=== PATIENT | female | born 1970 | race American Indian/Alaskan Native ===

== ENCOUNTER 2022-01-07 08:44 | Inpatient (IN) | payer OTHER ==
--- NOTE | 2022-01-07 09:23 | Emergency Department Report ---
HPI - General Chief Complaint: Neuro Symptoms/Deficit Time Seen by Provider: 01/07/22 09:11 - HPI HPI: Charge nurse triage/room 1 The patient is a 51-year-old female presenting with a chief complaint of dysarthria. Patient states last night at approximately 2200 she became confused and had difficulties getting her words out ED Past Medical Hx - Past Medical History Previous Medical History?: No - Surgical History Additional Surgical History: , tubal ligation - Family History Family history: no significant - Social History Smoking Status: Never Smoker ED Review of Systems ROS: Stated complaint: CANT SPEAK/OR THINK SUDDENLY Other details as noted in HPI Neurological: confusion Physical Exam - Physical Exam Vital Signs: Vital Signs 01/07/22 08:54 Temperature 98.0 F Pulse Rate 78 Respiratory 14 Rate Blood Pressure 147/90 O2 Sat by Pulse 100 Oximetry Physical Exam: GENERAL: The patient is well-developed well-nourished female sitting in wheelchair not appearing to be in acute distress. [] HEENT: Normocephalic. Atraumatic. Extraocular motions are intact. Patient has moist mucous membranes. NECK: Supple. Trachea midline CHEST/LUNGS: Clear to auscultation. There is no respiratory distress noted. HEART/CARDIOVASCULAR: Regular. There is no tachycardia. There is no gallop rub or murmur. ABDOMEN: Abdomen is soft, nontender. Patient has normal bowel sounds. There is no abdominal distention. SKIN: There is no rash. There is no edema. There is no diaphoresis. NEURO: The patient is awake, alert, and oriented. The patient is cooperative. The patient has normal speech. Cranial nerves II through XII grossly intact. GCS 15. Patient able to hold either upper extremity at 45 degree angle for 10- second count without drift. Patient is exhibiting difficultywith her speech. NIHSS=1 MUSCULOSKELETAL: There is no evidence of acute injury. ED Course Vital Signs 01/07/22 08:54 Temperature 98.0 F Pulse Rate 78 Respiratory 14 Rate Blood Pressure 147/90 O2 Sat by Pulse 100 Oximetry ED Medical Decision Making - Lab Data Laboratory Tests 01/07/22 01/07/22 01/07/22 09:28 09:28 09:28 WBC 8.4 RBC 4.56 Hgb 13.8 Hct 41.6 MCV 91 MCH 30 MCHC 33 RDW 14.4 Plt Count 219 Lymph % (Auto) 25.9 [place] % (Auto) 5.1 Eos % (Auto) 0.7 Baso % (Auto) 0.5 Lymph # (Auto) 2.2 [place] # (Auto) 0.4 Eos # (Auto) 0.1 Baso # (Auto) 0.0 Seg Neutrophils % 67.8 Seg Neutrophils # 5.7 PT 13.6 INR 0.94 APTT 29.0 Thrombin Time 18.1 Sodium 135 L Potassium 4.5 Chloride 99.5 Carbon Dioxide 26 Anion Gap 14 BUN 13 Creatinine 1.1 Estimated GFR 52 BUN/Creatinine Ratio 12 Glucose 121 H Calcium 9.6 - EKG Data -: EKG Interpreted by Mt EKG shows normal: sinus rhythm Rate: normal (75 bpm) - EKG Data When compared to previous EKG there are: previous EKG unavailable Interpretation: other (No ischemic changes seen) - Radiology Data Radiology results: image reviewed (CT head, CTA brain, CTA neck) [facility] [address] [place] [address] Cat Scan Report Signed Patient: AD BURGOS MR#: [id number] : 1970 Acct:[id number] Age/Sex: 51 / F ADM Date: 01/07/22 Loc: ED Attending Dr: Ordering Physician: DANAE REYNOSO MD Date of Service: 01/07/22 Procedure(s): CT head/brain wo con Accession Number(s): [id number] cc: DANAE REYNOSO MD CT head/brain wo con INDICATION / CLINICAL INFORMATION: 51 years Female; Dysarthria. TECHNIQUE: Routine CT head without contrast. All CT scans at this location are performed using CT dose reduction for ALARA by means of automated exposure control. COMPARISON: None available. FINDINGS: There is a focus of relative decreased attenuation within the lateral left frontal lobe measuring approximately 2 cm transversely. The findings be concerning for developing acute/subacute infarct involving cortical and subcortical region at. There also appears be mild relative effacement of the adjacent sulci. There is an old lacunar infarct along the head of the right caudate. There is otherwise mild cerebral white matter changes which may reflect mild microvascular angiopathy. There are foci of calcification within the basal ganglia. There is no clear CT ends of acute intracranial hemorrhage or significant mass effect. ORBITS: No significant abnormality of visualized orbits. SINUSES / MASTOIDS: No significant abnormality in the visualized paranasal sinuses or mastoid air cells. CRANIOCERVICAL JUNCTION: No significant abnormality. ADDITIONAL FINDINGS: None. IMPRESSION: 1. There is decreased attenuation along the lateral left frontal cortical and subcortical region as detailed above concerning for acute/subacute infarct. 2. There is otherwise microvascular angiopathy as described without evidence of acute intracranial hemorrhage. Signer Name: Jf Teixeira MD Signed: 01/07/2022 9:45 AM Workstation Name: [id number] Transcribed By: MR Dictated By: Jf Teixeira MD Electronically Authenticated By: Jf Teixeira MD Signed Date/Time: 01/07/22944 DD/ 8 TD/TT: [facility] [address] [place] [address] Cat Scan Report Signed Patient: AD BURGOS MR#: [id number] : 1970 Acct:[id number] Age/Sex: 51 / F ADM Date: 01/07/22 Loc: ED Attending Dr: Ordering Physician: DANAE REYNOSO MD Date of Service: 01/07/22 Procedure(s): CT angio neck Accession Number(s): [id number] cc: DANAE REYNOSO MD CT angio neck INDICATION / CLINICAL INFORMATION: 51 years Female; Dysarthria. TECHNIQUE: Thin cut axial images obtained through the head during IV bolus contrast administration. Sagittal, coronal, and 3 plane MIP reconstructions performed by the technologist. NASCET type crit eria used evaluate stenoses. All CT scans at this location are performed using CT dose reduction for ALARA by means of automated exposure control. COMPARISON: None available. FINDINGS: CAROTID ARTERIES: There is no significant stenosis involving cervical carotid arteries by NASCET criteria. The carotid bifurcations are widely patent. VERTEBRAL ARTERIES: The vertebral arteries also demonstrate appropriate caliber without significant focal stenosis. The vessel ayers demonstrate fairly smooth contours. ARCH: There is no significant stenosis involving origins of the arch of vessels. ADDITIONAL FINDINGS: Remainder of the surrounding soft tissues are grossly normal. IMPRESSION: There is no significant stenosis involving cervical carotid or vertebral arteries by NASCET to criteria. Signer Name: Jf Teixeira MD Signed: 01/07/2022 9:54 AM Workstation Name: [id number] Transcribed By: MR Dictated By: Jf Teixeira MD Electronically Authenticated By: Jf Teixeira MD Signed Date/Time: 01/07/22953 DD/ 0 TD/TT: [facility] [address] [place] [address] Cat Scan Report Signed Patient: AD BURGOS MR#: [id number] : 1970 Acct:[id number] Age/Sex: 51 / F ADM Date: 01/07/22 Loc: ED Attending Dr: Ordering Physician: DANAE REYNOSO MD Date of Service: 01/07/22 Procedure(s): CT angio head Accession Number(s): [id number] cc: DANAE REYNOSO MD CT angio head INDICATION / CLINICAL INFORMATION: 51 years Female; Dysarthria. TECHNIQUE: Thin cut axial images obtained through the head during IV bolus contrast administration. Sagittal, coronal, and 3 plane MIP reconstructions performed by the technologist. NASCET type crit eria used evaluate stenoses. Automated exposure control utilized for radiation reduction purposes. COMPARISON: None available. FINDINGS: INTERNAL CAROTID ARTERIES: There is no significant focal stenosis involving the intracranial ICAs by NASCET criteria. VERTEBROBASILAR SYSTEM: The vertebrobasilar system also demonstrate appropriate caliber without significant focal stenosis. CEREBRAL ARTERIES: The proximal cerebral arteries and adjacent segments appear to demonstrate appropriate caliber. On the earlier noncontrast study at, there is relative decreased attenuation involving the more superior left lateral frontal cortical and subcortical region at. However, there is no clear evidence of more proximal large vessel occlusion amenable to endovascular treatment. ANEURYSM: None identified. ADDITIONAL FINDINGS: The dural venous sinuses opacify with contrast. IMPRESSION: On the earlier noncontrast CT, the findings are indicative of evolving infarct involving superior, lateral left frontal cortical and subcortical region as previously described. There is no clear CTA evidence of more proximal large vessel occlusion amenable to endovascular treatment. Signer Name: Jf Teixeira MD Signed: 01/07/2022 10:03 AM Workstation Name: [id number] Transcribed By: MR Dictated By: Jf Teixeira MD Electronically Authenticated By: Jf Teixeira MD Signed Date/Time: 01/07/22 100 DD/ 3 TD/TT: Critical care attestation.: If time is entered above; I have spent that time in minutes in the direct care of this critically ill patient, excluding procedure time. ED Disposition Clinical Impression: CVA (cerebral vascular accident) Disposition: ADMITTED INPATIENT Is pt being admited?: Yes Does the pt Need Aspirin: Yes Condition: Fair Time of Disposition: 10:58 (Care transferred to hospitalist (Dr. Osorio))
--- NOTE | 2022-01-07 09:32 | Consultation ---
History of Present Illness - Reason for Consult Consult date: 01/07/22 - History of Present Illness [facility] Consult Note # Demographics Consult Type: Acute Stroke Level 1 (0-4.5 hrs) Patient Location: Emergency Room First Name: Debby Last Name: Khadar Date of : 1970 Age: 51 Gender: Female Facility: [facility] Time of Initial Page (): 01/07/2022, 09:17 Time of Return Call (): 01/07/2022, 09:18 # HPI History: 51yo woman who presents with confusion that started yesterday. No focal weakness in the arms or legs. Associated Symptoms: confusion no dizziness no double vision headache # Scores Time of exam and NIHSS (): 01/07/2022, 09:19 Level of Consciousness 1a: [0] = Alert; keenly responsive LOC Questions 1b: [0] = Answers both questions correctly LOC Commands 1c: [0] = Performs both tasks correctly Best Gaze 2: [0] = Normal Visual 3: [0] = No visual loss Facial Palsy 4: [0] = Normal symmetrical movements Motor Arm Left 5a: [0] = No drift Motor Arm Right 5b: [0] = No drift Motor Leg Left 6a: [0] = No drift Motor Leg Right 6b: [0] = No drift Limb Ataxia 7: [0] = Absent Sensory 8: [0] = Normal Best Language 9: [0] = No aphasia Dysarthria 10: [0] = Normal Extinction and Inattention 11: [0] = No abnormality NIHSS Total: 0 # Data Time Head CT personally read by me (): 01/07/2022, 09:[address]: no bleed preliminarily reviewed by me, please refer to radiology read for official reading # Assessment Impression: Altered Mental Status # Plan Thrombolytic/Intervention: NOT IV Thrombolysis or IA Intervention candidate Thrombolytic Exclusion: > 4.5 hours Intraarterial Exclusion: clinically not consistent with stroke Labs: Ammonia B12 comprehensive metabolic panel ESR liver function tests TSH urine drug screen ua Imaging: (urgency: STAT): CT Angiogram Head and CT Angiogram Neck AND call back with results if abnormal Imaging: (urgency: routine): MRI Brain without contrast Other: telemetry monitoring would not pursue stroke work-up if MRI is negative I have discussed my recommendations with the referring provider Medications and Allergies Allergies Allergy/AdvReac Type Severity Reaction Status Date / Time No Known Allergies Allergy Verified 01/07/22 09:01 Exam - Constitutional Vitals: Temp Pulse Resp BP Pulse Ox 98.0 F 78 14 147/90 100 01/07/22 08:54 01/07/22 08:54 01/07/22 08:54 01/07/22 08:54 01/07/22 08:54
--- NOTE | 2022-01-07 09:50 | Cat Scan Report ---
CT head/brain wo con INDICATION / CLINICAL INFORMATION: 51 years Female; Dysarthria. TECHNIQUE: Routine CT head without contrast. All CT scans at this location are performed using CT dos e reduction for ALARA by means of automated exposure control. COMPARISON: None available. FINDINGS: There is a focus of relative decreased attenuation within the lateral left frontal lobe measuring nicola roximately 2 cm transversely. The findings be concerning for developing acute/subacute infarct involv ing cortical and subcortical region at. There also appears be mild relative effacement of the adjacen t sulci. There is an old lacunar infarct along the head of the right caudate. There is otherwise mild cerebral white matter changes which may reflect mild microvascular angiopathy . There are foci of calcification within the basal ganglia. There is no clear CT ends of acute intrac ranial hemorrhage or significant mass effect. ORBITS: No significant abnormality of visualized orbits. SINUSES / MASTOIDS: No significant abnormality in the visualized paranasal sinuses or mastoid air mishel ls. CRANIOCERVICAL JUNCTION: No significant abnormality. ADDITIONAL FINDINGS: None. IMPRESSION: 1. There is decreased attenuation along the lateral left frontal cortical and subcortical region as d etailed above concerning for acute/subacute infarct. 2. There is otherwise microvascular angiopathy as described without evidence of acute intracranial he morrhage. Signer Name: Jf Teixeira MD Signed: 01/07/2022 9:45 AM Workstation Name: [id number]
--- NOTE | 2022-01-07 09:59 | Cat Scan Report ---
CT angio neck INDICATION / CLINICAL INFORMATION: 51 years Female; Dysarthria. TECHNIQUE: Thin cut axial images obtained through the head during IV bolus contrast administration. S agittal, coronal, and 3 plane MIP reconstructions performed by the technologist. NASCET type criteria used evaluate stenoses. All CT scans at this location are performed using CT dose reduction for ALAR A by means of automated exposure control. COMPARISON: None available. FINDINGS: CAROTID ARTERIES: There is no significant stenosis involving cervical carotid arteries by NASCET crit eria. The carotid bifurcations are widely patent. VERTEBRAL ARTERIES: The vertebral arteries also demonstrate appropriate caliber without significant f ocal stenosis. The vessel ayers demonstrate fairly smooth contours. ARCH: There is no significant stenosis involving origins of the arch of vessels. ADDITIONAL FINDINGS: Remainder of the surrounding soft tissues are grossly normal. IMPRESSION: There is no significant stenosis involving cervical carotid or vertebral arteries by NASCET to criter ia. Signer Name: Jf Teixeira MD Signed: 01/07/2022 9:54 AM Workstation Name: [id number]
--- NOTE | 2022-01-07 10:08 | Cat Scan Report ---
CT angio head INDICATION / CLINICAL INFORMATION: 51 years Female; Dysarthria. TECHNIQUE: Thin cut axial images obtained through the head during IV bolus contrast administration. S agittal, coronal, and 3 plane MIP reconstructions performed by the technologist. NASCET type criteria used evaluate stenoses. Automated exposure control utilized for radiation reduction purposes. COMPARISON: None available. FINDINGS: INTERNAL CAROTID ARTERIES: There is no significant focal stenosis involving the intracranial ICAs by NASCET criteria. VERTEBROBASILAR SYSTEM: The vertebrobasilar system also demonstrate appropriate caliber without signi ficant focal stenosis. CEREBRAL ARTERIES: The proximal cerebral arteries and adjacent segments appear to demonstrate appropr iate caliber. On the earlier noncontrast study at, there is relative decreased attenuation involving the more superior left lateral frontal cortical and subcortical region at. However, there is no clear evidence of more proximal large vessel occlusion amenable to endovascular treatment. ANEURYSM: None identified. ADDITIONAL FINDINGS: The dural venous sinuses opacify with contrast. IMPRESSION: On the earlier noncontrast CT, the findings are indicative of evolving infarct involving superior, la teral left frontal cortical and subcortical region as previously described. There is no clear CTA benoit dence of more proximal large vessel occlusion amenable to endovascular treatment. Signer Name: Jf Teixeira MD Signed: 01/07/2022 10:03 AM Workstation Name: [id number]
[2022-01-07] MEDS ORDERED: ASPIRIN 325 MG TAB PO ONE (10:14)
[2022-01-07 10:34] LABS: Basophils % (Auto) 0.5 % (0.0-1.8); Eosinophils # (Auto) 0.1 K/mm3 (0.0-0.4); Eosinophils % (Auto) 0.7 % (0.0-4.3); Hematocrit 41.6 % (30.3-42.9); Hemoglobin 13.8 gm/dl (10.1-14.3); Lymphocytes # (Auto) 2.2 K/mm3 (1.2-5.4); Lymphocytes % (Auto) 25.9 % (13.4-35.0); Mean Corpuscular HGB Conc 33 % (30-34); Mean Corpuscular Volume 91 fl (79-97); Monocytes # (Auto) 0.4 K/mm3 (0.0-0.8); Monocytes % (Auto) 5.1 % (0.0-7.3); Platelet Count 219 K/mm3 (140-440); Red Blood Count 4.56 M/mm3 (3.65-5.03); Red Cell Distribution Width 14.4 % (13.2-15.2)
[2022-01-07 10:46] LABS: INR 0.94 (0.87-1.13)
[2022-01-07 10:47] LABS: Thrombin Time 18.1 Sec. (15.1-19.6)
[2022-01-07 10:53] LABS: Calcium 9.6 mg/dL (8.4-10.2)
[2022-01-07] MEDS ORDERED: ONDANSETRON 4 MG/2 ML INJ IV PRN (14:59)
[2022-01-07] MEDS ORDERED: ACETAMINOPHEN 325 MG TAB PO PRN (14:59)
[2022-01-07] MEDS ORDERED: SODIUM CHLORIDE 0.9% 1000 ML 1,000 ML IV SCH (15:00)
[2022-01-07] MEDS ORDERED: MORPHINE 2 MG/1 ML INJ IV PRN (15:07)
[2022-01-07] MEDS ORDERED: oxyCODONE /ACETAMINOPHEN 5-325MG TAB PO PRN (15:07)
[2022-01-07] MEDS ORDERED: METOCLOPRAMIDE 10 MG/2 ML INJ IV PRN (15:07)
--- NOTE | 2022-01-07 15:38 | History and Physical Report ---
History of Present Illness Date of examination: 01/07/22 Date of admission: 01/07/2022 Chief complaint: Dysarthria since a.m. History of present illness: 51-year-old female with no significant past medical history was apparently confused last night but went to sleep. There is no weakness last night. In the morning she was not able to articulate and was dysarthric for 2 to 3 hours and then became normal. Did not have any weakness in both upper or lower extremitie s. No fever or chills. No chest pain. No shortness of breath. Patient states that she has lost memory but during my history taking she answers all the questions appropriately and is alert oriented to time and place and person. - Past Medical History Previous Medical History?: No - Surgical History Additional Surgical History: , tubal ligation - Family History Family history: no significant - Social History Smoking Status: Never Smoker Review of Systems ROS: Stated complaint: CANT SPEAK/OR THINK SUDDENLY Other details as noted in HPI Neurological: confusion Medications and Allergies Allergies Allergy/AdvReac Type Severity Reaction Status Date / Time latex Allergy Itching Verified 01/07/22 21:56 Exam - Constitutional Vitals: Temp Pulse Resp BP Pulse Ox 98.0 F 78 18 147/90 100 01/07/22 08:54 01/07/22 08:54 01/07/22 11:01 01/07/22 08:54 01/07/22 11:01 General appearance: Present: no acute distress, well-nourished - EENT Eyes: Present: PERRL ENT: hearing intact, clear oral mucosa, other (Normal speech) - Neck Neck: Present: supple, normal ROM - Respiratory Respiratory effort: normal Respiratory: bilateral: CTA - Cardiovascular Heart Sounds: Present: S1 & S2. Absent: rub, click - Extremities Extremities: pulses symmetrical, No edema Peripheral Pulses: within normal limits - Abdominal General gastrointestinal: Present: soft, non-tender, non-distended, normal bowel sounds Female genitourinary: Present: normal - Integumentary Integumentary: Present: clear, warm, dry - Musculoskeletal Musculoskeletal: gait normal, strength equal bilaterally - Psychiatric Psychiatric: appropriate mood/affect, intact judgment & insight - Neurologic Neurologic: CNII-XII intact, moves all extremities Results - Labs CBC & Chem 7: 01/08/22 04:52 01/08/22 04:53 Labs: Laboratory Last Values WBC 8.4 K/mm3 (4.5-11.0) 01/07/22 09: RBC 4.56 M/mm3 (3.65-5.03) 01/07/22 09: Hgb 13.8 gm/dl (10.1-14.3) 01/07/22 09: Hct 41.6 % (30.3-42.9) 01/07/22: MCV 91 fl (79-97) 01/07/22 09: MCH 30 pg (28-32) 01/07/22: MCHC 33 % (30-34) 01/07/22: RDW 14.4 % (13.2-15.2) 01/07/22: Plt Count 219 K/mm3 (140-440) 01/07/22: Lymph % (Auto) 25.9 % (13.4-35.0) 01/07/22: [place] % (Auto) 5.1 % (0.0-7.3) 01/07/22 09: Eos % (Auto) 0.7 % (0.0-4.3) 01/07/22: Baso % (Auto) 0.5 % (0.0-1.8) 01/07/22: Lymph # (Auto) 2.2 K/mm3 (1.2-5.4) 01/07/22: [place] # (Auto) 0.4 K/mm3 (0.0-0.8) 01/07/22: Eos # (Auto) 0.1 K/mm3 (0.0-0.4) 01/07/22: Baso # (Auto) 0.0 K/mm3 (0.0-0.1) 01/07/22: Seg Neutrophils % 67.8 % (40.0-70.0) 01/07/22: Seg Neutrophils # 5.7 K/mm3 (1.8-7.7) 01/07/22 09: PT 13.6 Sec. (12.2-14.9) 01/07/22 09:28 INR 0.94 (0.87-1.13) 01/07/22 09:28 APTT 29.0 Sec. (24.2-36.6) 01/07/22 09:28 Thrombin Time 18.1 Sec. (15.1-19.6) 01/07/22 09:28 Sodium 135 mmol/L (137-145) L 01/07/22 09:28 Potassium 4.5 mmol/L (3.6-5.0) 01/07/22 09:28 Chloride 99.5 mmol/L (98-107) 01/07/22 09:28 Carbon Dioxide 26 mmol/L (22-30) 01/07/22 09:28 Anion Gap 14 mmol/L 01/07/22 09:28 BUN 13 mg/dL (7-17) 01/07/22 09:28 Creatinine 1.1 mg/dL (0.6-1.2) 01/07/22 09:28 Estimated GFR 52 ml/min 01/07/22 09:28 BUN/Creatinine Ratio 12 % 01/07/22 09:28 Glucose 121 mg/dL (65-100) H 01/07/22 09:28 Calcium 9.6 mg/dL (8.4-10.2) 01/07/22 09:28 Short CBC 01/07/22 01/08/22 Range/Units 09:28 04:52 WBC 8.4 7.3 (4.5-11.0) K/mm3 Hgb 13.8 13.5 (10.1-14.3) gm/dl Hct 41.6 40.4 (30.3-42.9) % Plt Count 219 220 (140-440) K/mm3 [facility] 01/07/22 01/08/22 09:28 04:53 Sodium 135 L 140 Potassium 4.5 4.0 Chloride 99.5 103.7 Carbon Dioxide 26 24 BUN 13 11 Creatinine 1.1 1.0 Glucose 121 H 102 H Calcium 9.6 9.1 Liver Function 01/08/22 Range/Units 04:53 Total Bilirubin 0.60 (0.1-1.2) mg/dL AST 11 (5-40) units/L ALT 9 (7-56) units/L Alkaline Phosphatase 78 (35-129) units/L Albumin 3.9 (3.9-5) g/dL - Imaging and Cardiology EKG: report reviewed (Sinus rhythm no acute ST-T wave changes) Imaging and Cardiology: Head CT There is decreased attenuation along the lateral left frontal cortical and subcortical region There is otherwise microvascular angiopathy as described without evidence of acute intracranial hemorrhage Assessment and Plan Advance Directives: Yes (Full code) VTE prophylaxis?: Chemical Plan of care discussed with patient/family: Yes - Patient Problems (1) CVA (cerebral vascular accident) Current Visit: Yes Status: Acute Plan to address problem: CVA versus TIA More in favor of TIA MRI brain and echocardiogram pending Neurology consult requested (2) Hyperlipidemia Current Visit: Yes Status: Chronic Qualifiers: Hyperlipidemia type: mixed hyperlipidemia Qualified Code(s): E78.2 - Mixed hyperlipidemia Plan to address problem: Patient started on statins (3) DVT prophylaxis Current Visit: Yes Status: Acute Plan to address problem: On heparin and GI prophylaxis (4) Advance care planning Current Visit: Yes Status: Acute Plan to address problem: Disease education conducted, care plan discussed, diagnosis discussed, prognosis discussed. Patient is a full code. Patient acknowledges understanding and agreement with care plan. +30 minutes.
[2022-01-07] MEDS: HEPARIN 5,000 UNIT/1 ML VIAL SUB-Q SCH ×2 (18:14→22:01)
[2022-01-08 06:31] LABS: Basophils % (Auto) 0.4 % (0.0-1.8); Eosinophils # (Auto) 0.1 K/mm3 (0.0-0.4); Eosinophils % (Auto) 1.1 % (0.0-4.3); Hematocrit 40.4 % (30.3-42.9); Hemoglobin 13.5 gm/dl (10.1-14.3); Lymphocytes # (Auto) 3.3 K/mm3 (1.2-5.4); Mean Corpuscular HGB Conc 33 % (30-34); Mean Corpuscular Volume 91 fl (79-97); Monocytes # (Auto) 0.4 K/mm3 (0.0-0.8); Monocytes % (Auto) 5.5 % (0.0-7.3); Platelet Count 220 K/mm3 (140-440); Red Blood Count 4.45 M/mm3 (3.65-5.03); Red Cell Distribution Width 14.4 % (13.2-15.2)
[2022-01-08 07:00] LABS: Alanine Aminotransferase 9 units/L (7-56); Albumin 3.9 g/dL (3.9-5); BUN/Creatinine Ratio 11; Blood Urea Nitrogen 11 mg/dL (7-17); Calcium 9.1 mg/dL (8.4-10.2); Chol/HDL Ratio 4.29 %; HDL Cholesterol 47 mg/dL (40-59); Hemolysis Index 6; LDL Cholesterol,Direct 148 mg/dL (50-130)
[2022-01-08] MEDS: HEPARIN 5,000 UNIT/1 ML VIAL SUB-Q SCH ×2 (11:46→21:22)
[2022-01-08] MEDS: ASPIRIN 325 MG TAB PO SCH (11:46)
[2022-01-08] MEDS ORDERED: BUTALB/ACETAMINOPHEN/CAFFEINE TAB PO PRN (15:00)
--- NOTE | 2022-01-08 15:38 | Consultation ---
History of Present Illness Consult date: 01/08/22 Reason for Consult: CVA Chief complaint: speech problem History of present illness: 51 yo right-handed female with no significant medical history who noted difficulty with her speech around 22:00 on 01/06/22 and then noted continued difficulty after she woke up yesterday. She notes that she can still notice some difficulty with getting her words out fluently. Denies any other symptoms surrounding this time period. Past History Past Surgical History: , Other (tubal ligation;) Social history: no significant social history, other (occasional alcohol;) Family history: no significant family history Medications and Allergies Allergies Allergy/AdvReac Type Severity Reaction Status Date / Time latex Allergy Itching Verified 01/07/22 21:56 Active Meds: Active Medications Acetaminophen (Acetaminophen 325 Mg Tab) 650 mg PO Q4H PRN PRN Reason: Pain MILD(1-3)/Fever >100.5 Last Admin: 01/08/22 11:54 Dose: 650 mg Acetaminophen/Butalbital/Caffeine (Butalb/Acetaminophen/Caffeine Tab) 1 tab PO Q6H PRN PRN Reason: Headache Aspirin (Aspirin 325 Mg Tab) 325 mg PO QDAY [facility] Last Admin: 01/08/22 11:46 Dose: 325 mg Heparin Sodium (Porcine) (Heparin 5,000 Unit/1 Ml Vial) 5,000 unit SUB-Q Q12HR [facility] Last Admin: 01/08/22 11:46 Dose: 5,000 unit Metoclopramide HCl (Metoclopramide 10 Mg/2 Ml Inj) 10 mg IV Q6H PRN PRN Reason: Nausea And Vomiting Morphine Sulfate (Morphine 2 Mg/1 Ml Inj) 2 mg IV Q4H PRN PRN Reason: Pain, Moderate (4-6) Ondansetron HCl (Ondansetron 4 Mg/2 Ml Inj) 4 mg IV Q8H PRN PRN Reason: Nausea And Vomiting Sodium Chloride (Sodium Chloride 0.9% 10 Ml Flush Syringe) 10 ml IV BID [facility] Last Admin: 01/07/22 22:01 Dose: 10 ml Sodium Chloride (Sodium Chloride 0.9% 10 Ml Flush Syringe) 10 ml IV PRN PRN PRN Reason: LINE FLUSH Review of Systems All systems: negative (as per hpi;) Physical Examination - Vital Signs Vital Signs: Vital Signs Temp Pulse Resp BP Pulse Ox 98.0 F 78 14 147/90 100 01/07/22 08:54 01/07/22 08:54 01/07/22 08:54 01/07/22 08:54 01/07/22 08:54 - Physical Exam Narrative exam: Gen: nad, well-nourished; Head: normocephalic; Eyes: no gaze deviation; no ptosis; ENT: normal vocalization; CVS: warm and well-perfused; Pulm: no respiratory distress; GI: appears non-distended; Ext: no cyanosis appreciated at distal extremities; Skin: no acute rash at distal extremities; Heme: no pathologic ecchymosis appreciated at distal extremities; Neuro: alert, oriented to name, age, month, year, surroundings, no dysarthria, slight expressive dysphasia, CN 2 - PERRL, visual eddy grossly intact, CN 3, 4, 6 - EOMI, CN 5 - facial sensation symmetric to light touch, CN 7 - facial movement symmetric, CN 8 - hearing grossly intact, CN 9, 10 - uvula midline, CN 11 symmetric shoulder movement, CN 12 - tongue midline; Motor - at least 4+/5 at all exts; Sensory - light touch symmetric, Cerebellar - fnf /hts intact, Gait - deferred secondary to fall risk; NIHSS (1a.) Level of Consciousness:0 (1b.) LOC Questions:0 (1c.) LOC Commands:0 (2.) Best Gaze:0 (3.) Visual:0 (4.) Facial Palsy:0 (5a.) Motor Arm, Left:0 (5b.) Motor Arm, Right:0 (6a.) Motor Leg, Left:0 (6b.) Motor Leg, Right:0 (7.) Limb Ataxia:0 (8.) Sensory:0 (9.) Best Language:1 (10.) Dysarthria:0 (11.) Extinction and Inattention:0 NIHSS Total Score: 1 Results - Laboratory Findings CBC and BMP: 01/08/22 04:52 01/08/22 04:53 Abnormal Lab Findings: Abnormal Labs 01/07/22 01/08/22 01/08/22 09:28 04:52 04:53 Lymph % (Auto) 45.0 H Sodium 135 L Glucose 121 H 102 H Cholesterol 202 H LDL Cholesterol Direct 148 H Assessment and Plan 51 yo right-handed female with no significant medical history who noted difficulty with her speech around 22:00 on 01/06/22 and then noted continued dif ficulty after she woke up yesterday. 1. Acute Ischemic Stroke: [ASA 325 mg PO qday, MRI Brain w/o contrast pending, unremarkable CTA Head/Neck w/ & w/o contrast, normal TTEcho (if TTE is normal, recommend ANTONIO and cardiac monitoring and hypercoaguable workup), confirm LDL/HgbA1C/TSH/Covid-19/UDS, telemetry, NIHSS q4 hours; SBP goal 160-200 mmHg and DBP 80-100 mmHg for 48 more hours. Statin therapy for a goal LDL of 70, when patient passes swallow evaluation. PT/OT/ST/Swallow evaluation. Long- term risk-factor modification, including a strict diet/exercise regimen for secondary stroke prophylaxis. Stroke education prior to discharge. 2. Expressive Dysphasia - st evaluation/monitoring. 3. Dyslipidemia - confirmed on lipid panel; statin therapy for a goal ldl of 70. 4. Obesity - outpatient weight loss program via pcp. Chadwick Montenegro MD Neurology [id number]
--- NOTE | 2022-01-08 16:53 | Magnetic Resonance Report ---
NONENHANCED MR SCAN OF THE BRAIN: INDICATION / CLINICAL INFORMATION: Dysarthria TECHNIQUE: Multiplanar, multisequence MR images of the brain obtained. COMPARISON: None available. FINDINGS: BRAIN / INTRACRANIAL CONTENTS: Subacute ischemia in the left lateral middle frontal gyrus; infarction more than 12 levels old (increased T2 signal intensity) but less than 3 days old (low ADC).. Brainstem and cerebellar hemispheres are normal. In the cerebral hemispheres, isolated white matter lesions are seen predominantly along the right dustin trum [place]. No enhancing parenchymal or meningeal lesions CRANIOCERVICAL JUNCTION: No significant abnormality. VASCULAR FLOW-VOIDS: No significant abnormality. ORBITS: No significant abnormality of visualized orbits. SINUSES / MASTOIDS: No significant abnormality of visualized sinuses and mastoid air cells. ADDITIONAL FINDINGS: None. IMPRESSION: 1. Nonhemorrhagic subacute infarction in the left middle frontal gyrus Signer Name: Lucas Hernandez MD Signed: 01/08/2022 4:48 PM Workstation Name: [id number]
--- NOTE | 2022-01-08 20:53 | Progress Note ---
Assessment and Plan - Patient Problems (1) CVA (cerebral vascular accident) Current Visit: Yes Status: Acute Plan to address problem: CVA versus TIA More in favor of TIA MRI brain and echocardiogram pending Neurology consult requested (2) Hyperlipidemia Current Visit: Yes Status: Chronic Qualifiers: Hyperlipidemia type: mixed hyperlipidemia Qualified Code(s): E78.2 - Mixed hyperlipidemia Plan to address problem: Patient started on statins (3) DVT prophylaxis Current Visit: Yes Status: Acute Plan to address problem: On heparin and GI prophylaxis (4) Advance care planning Current Visit: Yes Status: Acute Plan to address problem: Disease education conducted, care plan discussed, diagnosis discussed, prognosis discussed. Patient is a full code. Patient acknowledges understanding and agreement with care plan. +30 minutes. Subjective Date of service: 01/08/22 Objective - Constitutional Vitals: Vital Signs - 12hr 01/08/22 01/08/22 16:09 19:25 Temperature 97.8 F Pulse Rate 85 Respiratory 18 14 Rate Blood Pressure 156/106 O2 Sat by Pulse 98 96 Oximetry General appearance: Present: no acute distress, well-nourished - EENT Eyes: PERRL, EOM intact ENT: hearing intact, clear oral mucosa Ears: bilateral: normal - Neck Neck: supple, normal ROM - Respiratory Respiratory effort: normal Respiratory: bilateral: CTA - Breasts Breasts: normal - Cardiovascular Rhythm: regular Heart Sounds: Present: S1 & S2. Absent: gallop, rub Extremities: pulses intact, No edema, normal color, Full ROM - Gastrointestinal General gastrointestinal: Present: soft, non-tender, non-distended, normal bowel sounds - Genitourinary Female genitourinary: normal - Integumentary Integumentary: clear, warm, dry - Musculoskeletal Musculoskeletal: 1, strength equal bilaterally - Neurologic Neurologic: moves all extremities - Psychiatric Psychiatric: memory intact, appropriate mood/affect, intact judgment & insight - Labs CBC & Chem 7: 01/08/22 04:52 01/08/22 04:53 Labs: Abnormal lab results 01/08/22 01/08/22 Range/Units 04:52 04:53 Lymph % (Auto) 45.0 H (13.4-35.0) % Glucose 102 H (65-100) mg/dL Cholesterol 202 H (50-199) mg/dL LDL Cholesterol Direct 148 H (50-130) mg/dL
[2022-01-09] MEDS: HEPARIN 5,000 UNIT/1 ML VIAL SUB-Q SCH (10:53)
[2022-01-09] MEDS: ASPIRIN 325 MG TAB PO SCH (10:53)
--- NOTE | 2022-01-09 18:25 | Discharge Summary ---
Providers - Providers Date of Admission: 01/07/22 14:59 Date of discharge: 01/09/22 Attending physician: BARBY YIN 01/07/22 15:07 Consult to Physician [CONS] Routine Comment: Consulting Provider: ZACH RESENDIZ Physician Instructions: Reason For Exam: TIA 01/07/22 15:30 Occupational Therapy Evaluate and Treat [CONS] Routine Comment: Reason For Exam: Neuro deficits Physical Therapy Evaluation and Treat [CONS] Routine Comment: Reason For Exam: Neuro deficits Primary care physician: BOAT DECKHAND Hospitalization Condition: Fair Hospital course: Dysarthria since a.m. History of present illness: 51-year-old female with no significant past medical history was apparently confused last night but went to sleep. There is no weakness last night. In the morning she was not able to articulate and was dysarthric for 2 to 3 hours and then became normal. Did not have any weakness in both upper or lower extremities. No fever or chills. No chest pain. No shortness of breath. Patient states that she has lost memory but during my history taking she answers all the questions appropriately and is alert oriented to time and place and person. Disposition: 01 HOME / SELF CARE / HOMELESS - Discharge Diagnoses (1) CVA (cerebral vascular accident) Status: Acute (2) Hyperlipidemia Status: Chronic Qualifiers: Hyperlipidemia type: mixed hyperlipidemia Qualified Code(s): E78.2 - Mixed hyperlipidemia (3) DVT prophylaxis Status: Acute (4) Advance care planning Status: Acute Exam - Constitutional Vitals: Temp Pulse Resp BP Pulse Ox 97.5 F L 70 12 141/87 97 01/09/22 03:31 01/09/22 03:31 01/09/22 03:31 01/09/22 03:31 01/09/22 03:31 Plan Activity: no restrictions Diet: low salt Follow up with: LENA TOTH MD [Primary Care Provider] - 7 Days AALIYAH TERRELL MD [Staff Physician] - 7 Days Prescriptions: Aspirin 325 mg PO QDAY 100 Days #100 tablet AtorvaSTATin [Lipitor] 40 mg PO QHS #30 tablet Clopidogrel [Plavix] 75 mg PO QDAY #30 tablet
[2022-01-09 20:41] VITALS: BP 139/89
--- NOTE | 2022-01-09 22:04 | Magnetic Resonance Report ---
MRA HEAD WITHOUT CONTRAST HISTORY: Dural sinus thrombosis 01/07/2022 12/08/2021 TECHNIQUE: Routine MRA of the head performed. 3-D/MIP reformats postprocessed. FINDINGS: MRA HEAD: OVERVIEW: There is no evidence of intracranial stenosis or large vessel occlusion. There is no eviden ce of aneurysm or other vascular malformation. Intracranial vertebral arteries: Normal and symmetrical vertebral arteries both contribute to the bas ilar artery origin. Basilar artery: Basilar artery has an unremarkable appearance. Posterior cerebral arteries: Normal and symmetrical appearing posterior cerebral arteries are identif ied. Intracranial internal carotid arteries: No significant abnormality. Anterior cerebral arteries: Bilaterally symmetrical A1 segments of the anterior cerebral arteries are demonstrated. No abnormalities are seen along the course of the A2 segments or visualized pericallos al branches. Middle cerebral arteries: Normal and symmetrical M1 segments are demonstrated bilaterally. No abnorma lities are seen on evaluation of the insular or opercular branches of the middle cerebral arteries. [place]:Not intact. See above discussion. IMPRESSION: 1. No indication of intercranial stenosis or large vessel occlusion. MRV brain History: dural sinus thrombosis ; Technique: 3-D evaluation for MR venography of the brain. Findings: No priors. No signs of dural sinus thrombosis seen. The superior sagittal sinus, transverse sinuses, sigmoid sinuses, internal jugular veins, internal ce rebral veins, vein of Jose, and straight sinus are all patent. Impression: No evidence of dural sinus thrombosis. Signer Name: Yoel Williamson MD Signed: 01/09/2022 9:59 PM Workstation Name: [id number]
--- NOTE | 2022-01-10 11:59 | Electrocardiograph Report ---
[facility] Test Date: 2022-01-07 Test Time: 09:03:56 Pat Name: AD BURGOS Department: Room: A459 Gender: F [employer] Super[employer]: BHARGAV : 1970 Requested By: DANAE REYNOSO Order Number: [id number] Reading MD: Watson Ramachandran Measurements Intervals [place] Rate: 75 P: 80 WA: 183 QRS: 16 QRSD: 87 T: 22 QT: 399 QTc: 447 Interpretive Statements Sinus rhythm Occasional premature atrial complexes No previous ECG available for comparison Electronically Signed On 01-10-2022 11:59:14 EDT by Watson Ramachandran
== END 2022-01-09 22:58 | disposition home or self-care (01) | DRG 65 ==
LOC: ED 08:44 → 4A 14:59
PROVIDERS: ADMIT Internal Medicine; ATTEND Internal Medicine
DX: I63.9 Cerebral infarction, unspecified (principal); Z68.41 Body mass index [BMI] 40.0-44.9, adult; E78.2 Mixed hyperlipidemia; E66.9 Obesity, unspecified; R47.02 Dysphasia; Z91.040 Latex allergy status; Z98.51 Tubal ligation status
CPT/HCPCS: 36415; 70450; 70496; 70498; 70544; 70553; 80048; 80053; 80061; 84443; 85025; 85610; 85670; 85730; 93005; 93306; G0378; A9575; C8929; J1644; J7030; Q9967